=== PATIENT | female | born 1965 | race Caucasian/White ===

== ENCOUNTER → 2021-03-11 | Outpatient (CLI) | payer SELFPAY ==
--- NOTE | 2021-03-11 14:00 | KCIC ---
Complete abdominal ultrasound 03/11/2021 INDICATION: Mid abdominal pain with palpation. COMPARISON STUDY: None available. Discussion: Ultrasound imaging of the abdomen was performed. Static images are submitted to PACS. Vis ualized portions of the pancreas are unremarkable. Visualized portions of aorta and IVC are unremarka ble. Liver is normal in size measuring 13 cm longitudinally. Portal venous flow appears to be in the normal direction. No focal hepatic lesions are identified. The gallbladder demonstrates no evidence o f wall thickening, sludge, or stones. Common bile duct is nondilated. Common bile duct measures 4 mm. In the inferior pole the right kidney is a 3 cm nonobstructing calculus. The right kidney is otherwi se normal in appearance measuring 10.6 cm longitudinally. Spleen is normal in size measuring 7.4 cm l ongitudinally. Left kidney is unremarkable in appearance measuring 11 cm longitudinally. IMPRESSION: 1. No evidence of acute intra-abdominal abnormality 2. 3 mm nonobstructing calculus, inferior pole left kidney Electronically signed by: Derrek Dillon MD (03/11/2021 10:05 AM) [id number]
== END ==
LOC: KCIC US 08:43
PROVIDERS: ATTEND Family Medicine
DX: N20.0 Calculus of kidney (principal); R00.2 Palpitations
CPT/HCPCS: 76700